=== PATIENT | male | born 1935 | race Caucasian/White ===

== ENCOUNTER 2016-12-31 14:17 | Emergency (ER) | payer OTHER ==
[~2016-12-31] VITALS: Ht 195.6 cm; Wt 102.2 kg
[~2016-12-31 14:17] MED LIST: CEFADROXIL500 MG PO; PERCOCET 5/31 TABLET PO
[2016-12-31] MEDS ORDERED: ULTRAM50 MG PO (16:21)
[2016-12-31 17:26] VITALS: BP 158/107
== END 2016-12-31 17:28 | disposition home or self-care (01) ==
LOC: EME 14:17
DX: M25.461 Effusion, right knee (principal); I10 Essential (primary) hypertension; E11.9 Type 2 diabetes mellitus without complications; Z86.73 Personal history of transient ischemic attack (TIA), and cerebral infarction without residual deficits; Z87.891 Personal history of nicotine dependence
CPT/HCPCS: 73564; 99281; 99284

== ENCOUNTER 2017-08-07 12:38 | Inpatient (IN) | payer OTHER ==
[~2017-08-07] VITALS: Ht 193 cm; Wt 108.7 kg
[~2017-08-07 12:38] MED LIST changes: +ULTRAM50 MG PO
[2017-08-07 13:50] LABS: BASOPHIL (%) 0.7 % (0-1); EOSINOPHIL (%) 0 % (0-5); HEMATOCRIT 36.1 % (38.0-50.0); HEMOGLOBIN 12.2 G/DL (12.5-16.6); IMMATURE GRANULOCYTE (%) 0.2 % (0.0-0.7); LYMPHOCYTE (%) 22.5 % (15-42); MCH 26.2 PG (29.0-34.0); MCHC 33.8 G/DL (30.0-36.0); MCV 77.6 FL (86-99); MONOCYTE (%) 21.1 % (3-12); MONOCYTE COUNT 0.9 K/uL (0-0.8); NEUTROPHIL (%) 55.5 % (45-76); NEUTROPHIL COUNT 2.4 K/uL (1.8-6.4); PLATELET COUNT 274 K/uL (156-360); RBC DIS.WIDTH-CV 15.9 % (11.8-14.6); RBC DIS.WIDTH-SD 44.2 % (39-53); RED BLOOD COUNT 4.65 M/uL (4.00-5.50); WHITE BLOOD COUNT 4.3 K/uL (4.1-10.2)
[2017-08-07 14:01] LABS: ALBUMIN 3.9 g/dL (3.2-4.8)
[2017-08-07 14:02] LABS: CHLORIDE 105 mEq/L (99-109); POTASSIUM 3.3 mEq/L (3.7-5.4); SODIUM 140 mEq/L (136-147)
[2017-08-07 14:04] LABS: TOTAL PROTEIN 7.9 g/dL (6.4-8.3)
[2017-08-07 14:06] LABS: TOTAL BILIRUBIN 0.3 mg/dL (0.0-1.0)
[2017-08-07 14:07] LABS: ALKALINE PHOSPHATASE 84 IU/L (3-129)
[2017-08-07 14:08] LABS: CREATININE 1.7 mg/dL (0.6-1.3); GFR ESTIMATE (CALCULATED) 41 mL/min/ (58.99-99999)
[2017-08-07 14:09] LABS: AST (GOT) 40 IU/L (2-34); UREA NITROGEN (BUN) 16 mg/dL (9-23)
[2017-08-07 14:10] LABS: ALT (GPT) 19 IU/L (3-49)
[2017-08-07 14:11] LABS: TROP-I INTERPRETATION NEGATIVE; TROPONIN-I 0.13 ng/mL (0.0-0.30)
[2017-08-07 14:13] LABS: GLUCOSE 36 mg/dL (70-99)
[2017-08-07] MEDS ORDERED: ADDERALL XR 1010 MG PO (14:27)
[2017-08-07] MEDS ORDERED: TRADJENTA5 MG PO (14:28)
[2017-08-07] MEDS ORDERED: BACTRIM,SEPT1 TABLET PO (14:29)
[2017-08-07] MEDS ORDERED: CALCITRIOL0.25 MCG PO (14:31)
[2017-08-07] MEDS ORDERED: AMLODIPINE BESYL5 MG PO (14:31)
[2017-08-07] MEDS ORDERED: LASIX20 MG PO (14:32)
[2017-08-07] MEDS ORDERED: ATENOLOL100 MG PO (14:32)
[2017-08-07] MEDS ORDERED: LISINOPRIL40 MG PO (14:32)
[2017-08-07] MEDS ORDERED: GLIPIZIDE10 MG PO (14:33)
[2017-08-07] MEDS ORDERED: LOVASTATIN40 MG PO (14:33)
[2017-08-07 15:08] LABS: APPEARANCE CLEAR ((CLEAR)); BILIRUBIN NEGATIVE; BLOOD NEGATIVE; COLOR STRAW ((YELLOW)); GLUCOSE (STRIP) NEGATIVE; KETONES NEGATIVE; LEUKOCYTES NEGATIVE; NITRITE NEGATIVE; PROTEIN (STRIP) NEGATIVE; SPECIFIC GRAVITY 1.006 (1.000-1.030); UROBILINOGEN 0.2 MG/DL (0.2-1.0)
[2017-08-07 18:20] VITALS: BP 139/98
[2017-08-07 20:26] VITALS: BP 132/100
[2017-08-07 21:03] LABS: TROP-I INTERPRETATION NEGATIVE; TROPONIN-I 0.14 ng/mL (0.0-0.30)
[2017-08-07 22:25] LABS: GLUCOSE 45 mg/dL (70-99)
[2017-08-07 23:08] VITALS: BP 164/100
[2017-08-08] VITALS: BP 160/90
[2017-08-08 02:50] LABS: TROP-I INTERPRETATION NEGATIVE; TROPONIN-I 0.12 ng/mL (0.0-0.30)
[2017-08-08 07:24] VITALS: BP 174/99
[2017-08-08 07:43] LABS: CHLORIDE 101 MEQ/L (99-109); CREATININE 2.1 MG/DL (0.6-1.3); GFR ESTIMATE (CALCULATED) 32 mL/min/ (58.99-99999); SODIUM 136 MEQ/L (136-147)
[2017-08-08 07:44] LABS: GLUCOSE 333 mg/dL (70-99); UREA NITROGEN (BUN) 25 mg/dL (9-23)
[2017-08-08] MEDS ORDERED: COUMADIN2.5 MG PO (14:26)
[2017-08-08] MEDS ORDERED: COUMADIN5 MG PO (14:28)
[2017-08-08 15:35] LABS: INTER. NORMALIZED RATIO 2.2
[2017-08-08 15:44] VITALS: BP 104/71
[2017-08-08 15:56] LABS: ALBUMIN 3.4 G/DL (3.2-4.8); CHLORIDE 105 MEQ/L (99-109); CREATININE 2.1 MG/DL (0.6-1.3); GFR ESTIMATE (CALCULATED) 32 mL/min/ (58.99-99999); GLUCOSE 134 mg/dL (70-99); PHOSPHORUS 3.5 mg/dL (2.5-4.9); POTASSIUM 3.5 MEQ/L (3.7-5.4); SODIUM 139 MEQ/L (136-147); UREA NITROGEN (BUN) 27 mg/dL (9-23)
[2017-08-08 20:17] VITALS: BP 129/93
[2017-08-08 23:11] VITALS: BP 139/100
[2017-08-09 03:57] VITALS: BP 127/83
[2017-08-09 06:31] LABS: HEMATOCRIT 35.4 % (38.0-50.0); MCH 26.1 PG (29.0-34.0); MCHC 33.9 G/DL (30.0-36.0); PLATELET COUNT 271 K/uL (156-360); RBC DIS.WIDTH-CV 15.9 % (11.8-14.6); RBC DIS.WIDTH-SD 43.8 % (39-53); WHITE BLOOD COUNT 5.1 K/uL (4.1-10.2)
[2017-08-09 06:38] LABS: INTER. NORMALIZED RATIO 2.1
[2017-08-09 06:55] LABS: CHLORIDE 105 MEQ/L (99-109); CREATININE 1.9 MG/DL (0.6-1.3); GFR ESTIMATE (CALCULATED) 36 mL/min/ (58.99-99999); GLUCOSE 196 mg/dL (70-99); POTASSIUM 3.5 MEQ/L (3.7-5.4); SODIUM 140 MEQ/L (136-147); UREA NITROGEN (BUN) 32 mg/dL (9-23)
[2017-08-09 07:33] VITALS: BP 133/98
[2017-08-09 11:30] VITALS: BP 123/74
[2017-08-09 16:12] VITALS: BP 108/72
[2017-08-09 19:43] VITALS: BP 104/76
[2017-08-09 22:35] VITALS: BP 124/85
[2017-08-10 07:10] LABS: HEMATOCRIT 37.1 % (38.0-50.0); HEMOGLOBIN 12.4 G/DL (12.5-16.6); MCH 25.7 PG (29.0-34.0); MCHC 33.4 G/DL (30.0-36.0); MCV 76.8 FL (86-99); PLATELET COUNT 274 K/uL (156-360); RBC DIS.WIDTH-CV 15.8 % (11.8-14.6); RBC DIS.WIDTH-SD 43.8 % (39-53); RED BLOOD COUNT 4.83 M/uL (4.00-5.50); WHITE BLOOD COUNT 5.1 K/uL (4.1-10.2)
[2017-08-10 07:11] LABS: INTER. NORMALIZED RATIO 2.3
[2017-08-10 08:27] LABS: CHLORIDE 104 MEQ/L (99-109); CREATININE 1.8 MG/DL (0.6-1.3); GFR ESTIMATE (CALCULATED) 39 mL/min/ (58.99-99999); GLUCOSE 156 mg/dL (70-99); SODIUM 140 MEQ/L (136-147); UREA NITROGEN (BUN) 34 mg/dL (9-23)
[2017-08-10 08:29] LABS: POTASSIUM 4.2 MEQ/L (3.7-5.4)
[2017-08-10 08:33] VITALS: BP 109/69; BP 109/84
[2017-08-10 11:48] VITALS: BP 118/83
[2017-08-10 15:24] VITALS: BP 135/108
[2017-08-10 23:21] VITALS: BP 143/101
[2017-08-11 06:41] LABS: INTER. NORMALIZED RATIO 2.9
[2017-08-11 07:25] VITALS: BP 164/98
[2017-08-11 16:05] VITALS: BP 125/84
[2017-08-12 00:07] VITALS: BP 150/113
[2017-08-12 06:28] LABS: HEMATOCRIT 36.7 % (38.0-50.0); HEMOGLOBIN 12.5 G/DL (12.5-16.6); MCH 25.7 PG (29.0-34.0); MCHC 34.1 G/DL (30.0-36.0); MCV 75.4 FL (86-99); PLATELET COUNT 265 K/uL (156-360); RBC DIS.WIDTH-CV 15.5 % (11.8-14.6); RBC DIS.WIDTH-SD 42.5 % (39-53); RED BLOOD COUNT 4.87 M/uL (4.00-5.50); WHITE BLOOD COUNT 5.7 K/uL (4.1-10.2)
[2017-08-12 06:33] LABS: INTER. NORMALIZED RATIO 3.2
[2017-08-12 06:52] LABS: CHLORIDE 106 MEQ/L (99-109); CREATININE 1.4 MG/DL (0.6-1.3); GFR ESTIMATE (CALCULATED) 52 mL/min/ (58.99-99999); GLUCOSE 180 mg/dL (70-99); POTASSIUM 3.6 MEQ/L (3.7-5.4); SODIUM 141 MEQ/L (136-147); UREA NITROGEN (BUN) 27 mg/dL (9-23)
[2017-08-12 07:00] VITALS: BP 149/90
[2017-08-12 16:08] VITALS: BP 120/92
[2017-08-13 00:48] VITALS: BP 134/84
[2017-08-13 06:45] VITALS: BP 124/92
[2017-08-13 06:53] LABS: CHLORIDE 105 MEQ/L (99-109); CREATININE 1.4 MG/DL (0.6-1.3); GFR ESTIMATE (CALCULATED) 52 mL/min/ (58.99-99999); GLUCOSE 159 mg/dL (70-99); POTASSIUM 3.7 MEQ/L (3.7-5.4); SODIUM 142 MEQ/L (136-147); UREA NITROGEN (BUN) 24 mg/dL (9-23)
[2017-08-13] MEDS ORDERED: MUCINEX600 MG PO (12:55)
== END 2017-08-13 15:45 | DRG 193 ==
LOC: EME 12:38 → EDOF 16:48 → ENRESERV 17:03 → CANRESERV 17:03 → 5EAST 17:10 → EDOF 17:10 → ENRESERV 17:11 → 5EAST 18:09
PROVIDERS: Emergency Medicine; Hospitalist; Internal Medicine; Physician Assistant Medical
DX: J18.1 Lobar pneumonia, unspecified organism (principal); E11.649 Type 2 diabetes mellitus with hypoglycemia without coma; N17.1 Acute kidney failure with acute cortical necrosis; I80.8 Phlebitis and thrombophlebitis of other sites; I48.91 Unspecified atrial fibrillation; I12.9 Hypertensive chronic kidney disease with stage 1 through stage 4 chronic kidney disease, or unspecified chronic kidney disease; N18.3 Chronic kidney disease, stage 3 (moderate); E11.22 Type 2 diabetes mellitus with diabetic chronic kidney disease; R19.02 Left upper quadrant abdominal swelling, mass and lump; E78.5 Hyperlipidemia, unspecified; N40.1 Benign prostatic hyperplasia with lower urinary tract symptoms; R33.9 Retention of urine, unspecified; G47.419 Narcolepsy without cataplexy; Z85.46 Personal history of malignant neoplasm of prostate; Z86.73 Personal history of transient ischemic attack (TIA), and cerebral infarction without residual deficits; Z87.891 Personal history of nicotine dependence; Z79.84 Long term (current) use of oral hypoglycemic drugs
CPT/HCPCS: 71045; 71250; 76770; 80048; 80053; 80069; 81003; 82948; 83605; 84484; 84999; 85025; 85027; 85610; 87040; 87070; 87086; 87106; 87205; 93005; 93971; 94640; 94640 76; 94760; 94799; 97530 GO; 99202; 99281; 99285; J0456; J0696; J1644; J1815; J1956; J7030; J7512

== ENCOUNTER → 2017-09-10 | Outpatient (CLI) | payer OTHER ==
[~2017-09-10] MED LIST changes: +ADDERALL XR 1010 MG PO; +AMLODIPINE BESYL5 MG PO; +ATENOLOL100 MG PO; +BACTRIM,SEPT1 TABLET PO; +CALCITRIOL0.25 MCG PO; +COUMADIN2.5 MG PO; +COUMADIN5 MG PO; +GLIPIZIDE10 MG PO; +LASIX20 MG PO; +LISINOPRIL40 MG PO; +LOVASTATIN40 MG PO; +MUCINEX600 MG PO; +TRADJENTA5 MG PO
== END | disposition home or self-care (01) ==
LOC: RAD 09:01
DX: K82.8 Other specified diseases of gallbladder (principal); N28.89 Other specified disorders of kidney and ureter; K76.9 Liver disease, unspecified
CPT/HCPCS: 74176